=== PATIENT | female | born 1955 | race Caucasian/White ===

== ENCOUNTER → 2017-01-16 | Outpatient (CLI) | payer OTHER | LOC: GMAB 14:23 | PROVIDERS: ATTEND Family Medicine | DX: R94.5 Abnormal results of liver function studies (principal) ==

== ENCOUNTER → 2017-02-18 | Outpatient (CLI) | payer OTHER, SELFPAY ==
--- NOTE | 2017-02-18 17:39 | US ---
EXAM DESCRIPTION: Abdomen,Complete CLINICAL HISTORY: NON-SPECIFIC ABNORMALITY ON LIVER FUNCTION TEST COMPARISON: None Available. TECHNIQUE: Complete abdominal ultrasound FINDINGS: The aorta tapers normally from approximately 2.4 to 1.7 cm with no abnormality in the region of the vena cava. The liver demonstrates increased echogenicity and is enlarged at 19.6 cm without focal mass or cyst. Hepatic steatosis should be considered. No intrahepatic dilation is seen. Gallbladder is surgically absent and the common bile duct is prominent at approximately 9.6 mm. Pancreas is normal in appearance except for a small cyst noted in the region of the pancreatic head with a maximal diameter of approximately 1.3 cm. No associated solid component or evidence of pancreatic duct dilation is seen. Right kidney is 12.4 cm and left kidney 12.7 cm in length. No cyst mass or obstruction is noted. No ascites is evident. The spleen is mildly enlarged at 12.5 cm in length. IMPRESSION: 1. Small 1.3 x 1.2 x 1.0 cm cyst in the head of the pancreas without associated solid component. Further evaluation with either multiphase enhanced CT or enhanced MR examination to fully characterize the pancreas is recommended. This should be performed with contrast enhancement if possible. 2. Hepatomegaly with increased echogenicity consistent with hepatic steatosis with mild splenomegaly. 3. Prior cholecystectomy with mildly prominent common bile duct. Electronically signed by: Aiden Shen MD 02/18/2017 5:38 PM CDT
== END | disposition home or self-care (01) ==
LOC: US 09:16
PROVIDERS: ATTEND Family Medicine
DX: R94.5 Abnormal results of liver function studies (principal)

== ENCOUNTER → 2017-02-28 | Outpatient (CLI) | payer SELFPAY ==
--- NOTE | 2017-02-28 16:24 | CT ---
EXAM DESCRIPTION: CT ABDOMEN AND PELVIS WITHOUT AND WITH CONTRAST CLINICAL HISTORY: CYST OF PANCREAS K86.2 COMPARISON: Ultrasound examination 02/18/2017 TECHNIQUE: CT of the abdomen and pelvis are performed prior to and during IV bolus administration of 100 mL of Isovue 300. Oral contrast media was not utilized. This exam was performed according to our departmental dose-optimization program, which includes automated exposure control, adjustment of the mA and/or kV according to patient size and/or use of iterative reconstruction technique. FINDINGS: The lung bases are clear. Prosthesis overlies the left lower chest wall consistent with previous mastectomy. Noncontrast imaging demonstrates surgical absence of the gallbladder. On noncontrast imaging the pancreas is unremarkable. Aortic calcification without aneurysm is noted. A small fat-containing umbilical hernia is noted. No evidence of renal stone disease or hydronephrosis is noted. Aortic calcification without aneurysm is evident. An eventration of the right lateral abdominal wall with bulging of the liver into the eventration just anterior to the tip of the 11th and 12th rib is noted. A mika hernia is not apparent. Enhanced examination demonstrates a homogeneous appearance of the liver. A small normal spleen is present. The the unenhanced pancreas demonstrates a normal appearance with no evidence of a pancreatic or peripancreatic mass identified. A small normal common bile duct is evident post cholecystectomy. The kidneys enhance normally. No solid pancreatic or splenic or adrenal masses are seen. No cyst or mass or obstruction of the kidneys noted. Continuing into the pelvis small amount of layering contrast in the bladder is noted without focal mass. The uterus is anteverted and slightly to the right of midline with normal adnexal structures large and small bowel is normal in caliber. Mild degenerative changes in the dorsal spine without destructive process is noted. IMPRESSION: 1. The pancreas is essentially normal in appearance without identification of a pancreatic head cyst, particularly on contrast enhanced examination 2. Surgical absence of the gallbladder without ductal dilation. 3. Small fat-containing umbilical hernia and moderate eventration of the right lateral abdominal wall with bulging of the liver into the eventration without mika hernia. Electronically signed by: Aiden Shen MD 02/28/2017 4:23 PM CDT
== END | disposition home or self-care (01) ==
LOC: CT 08:06
PROVIDERS: ATTEND Family Medicine
DX: K86.3 Pseudocyst of pancreas (principal)

== ENCOUNTER → 2019-02-23 | Outpatient (CLI) | payer MEDICARE, OTHER | LOC: LAB.O 08:29 | PROVIDERS: ATTEND Nurse Practitioner Family | DX: Z00.01 Encounter for general adult medical examination with abnormal findings (principal); E11.65 Type 2 diabetes mellitus with hyperglycemia; E66.09 Other obesity due to excess calories; Z68.34 Body mass index [BMI] 34.0-34.9, adult ==

== ENCOUNTER 2019-04-13 21:24 | Emergency (ER) | payer MEDICARE, OTHER ==
--- NOTE | 2019-04-13 22:10 | RAD ---
EXAM DESCRIPTION: XR Foot, Left 3 Views CLINICAL HISTORY: 64 years Female twisted foot , mid to lateral pain TECHNIQUE: Three views of the left foot COMPARISON: No prior exams provided for comparison. FINDINGS: There is no acute left foot fracture, dislocation, or evidence of avascular necrosis. Mild hallux valgus with mild primary osteoarthritic changes at the first metatarsophalangeal joint. Small medial soft tissue bunion. Joint spaces otherwise preserved. No aggressive osseous lesion. Large plantar calcaneal enthesophyte. IMPRESSION: No acute findings in the left foot. Electronically signed by: Joelle aMyes MD 04/13/2019 10:09 PM CDT
--- NOTE | 2019-04-13 22:48 | ED.PDOC ---
History of Present Illness - General Chief Complaint: Lower Extremity Injury Stated Complaint: left ankle injury Time Seen by Provider: 04/13/19 21:43 Source: patient Exam Limitations: no limitations - History of Present Illness Initial Comments: the patient is a 64-year-old female presenting to the emergency room secondary to left foot pain after she twisted her foot stepping off of a step at 2 PM today. She has had difficulty walking on it since. Pain is in the mid to lateral aspect of the foot. It is not distal. She is neurovascularly intact. No obvious deformity. No crepitus. No bruising. No laceration. No pain proximal. No actual pain in the ankle itself. Timing/Duration: 4-6 hours Severity: moderate Improving Factors: immobilization Worsening Factors: movement Associated Symptoms: denies symptoms Allergies/Adverse Reactions: Allergies NO KNOWN ALLERGY Allergy (Verified 07/03/12 13:49) Home Medications: Ambulatory Orders Ciprofloxacin [Cipro] 500 mg PO BID #10 tab 02/26/15 Saxagliptin-Metformin HCl [Kombiglyze Xr] 1 tab PO 02/26/15 Review of Systems - Review of Systems Constitutional: States: no symptoms reported EENTM: States: no symptoms reported Respiratory: States: no symptoms reported Cardiology: States: no symptoms reported Gastrointestinal/Abdominal: States: no symptoms reported Genitourinary: States: no symptoms reported Musculoskeletal: States: see HPI Skin: States: no symptoms reported Neurological: States: no symptoms reported Endocrine: States: no symptoms reported All other Systems: No Change from Baseline Past Medical History (General) - Patient Medical History Hx Seizures: No Hx Stroke: No Hx Dementia: No Hx Asthma: No Hx of COPD: No Hx Cardiac Disorders: No Hx Congestive Heart Failure: No Hx Pacemaker: No Hx Hypertension: Yes Hx Thyroid Disease: No Hx Diabetes: Yes - NIDDM Hx Gastroesophageal Reflux: No Hx Renal Disease: No Hx Cancer: Yes - breast ca 2003 Hx of HIV: No Hx Hepatitis C: No Hx MRSA: No Surgical History: cholecystectomy, other - Vaccination History Hx Tetanus, Diphtheria Vaccination: Yes Hx Influenza Vaccination: No Hx Pneumococcal Vaccination: Yes Immunizations Up to Date: Yes - Social History Hx Tobacco Use: No Hx Chewing Tobacco Use: No Hx Alcohol Use: No Hx Substance Use: No Hx Substance Use Treatment: No Hx Depression: No Feels Threatened In Home Enviroment: No Feels Threatened In a Relationship: No Hx Physical Abuse: No Hx Emotional Abuse: No Hx Suspected Abuse: No - Activities of Daily Living Hospice Agency (if applicable):: None - Female History Patient is a Female of Child Bearing Age (10 -59 yrs old): No Family Medical History - Family History Mother Family History: Unknown Physical Exam - Physical Exam General Appearance: Alert, Comfortable, No apparent distress Eye Exam: bilateral normal Ears, Nose, Throat: hearing grossly normal Respiratory: no respiratory distress, no accessory muscle use Cardiovascular/Chest: normal peripheral pulses, no edema Peripheral Pulses: dorsalis pedis,right: 2+, dorsalis pedis,left: 2+, posterior tibialis,right: 2+, posterior tibialis,left: 2+ Rectal Exam: deferred - this is confined renal, heme positive stool - Tom. Extremity: normal range of motion, no pedal edema, no calf tenderness, normal capillary refill, other - see history of present illness Neurologic: stars coordinator II-XII nml as tested, no motor/sensory deficits, alert, normal mood/affect Skin Exam: normal color Comments: Vital Signs - 8 hr 04/13/19 21:25 Temperature 97.8 F Pulse Rate [ 66 pulse ox] Respiratory 18 Rate Blood Pressure 155/85 [Right Arm] O2 Sat by Pulse 95 Oximetry Progress - Progress Progress: 04/13/19 22:50 the patient is a 64-year-old female with a left midfoot sprain. X-ray fails to show any dislocation or fracture. She is neurovascularly at her baseline. She is going to be placed in a walking boot. I would recommend that she use this for at least 1-2 weeks. Motrin can be used for discomfort. ER warnings were given for any significant worsening. cezar hayden [id number] Departure - Departure Clinical Impression: Sprain of foot Qualifiers: Encounter type: initial encounter Laterality: left Qualified Code(s): S93.602A - Unspecified sprain of left foot, initial encounter Disposition: Discharge to Home or Self Care Condition: Fair Departure Forms: ED Discharge - Pt. Copy, Patient Portal Self Enrollment Instructions: Foot Sprain (DC) Diet: diabetic diet Activity: increase activity as tolerated - with walking boot Referrals: Gloria Garcia NP [Primary Care Provider] - 1-2 Weeks Home Medications: Ambulatory Orders Ciprofloxacin [Cipro] 500 mg PO BID #10 tab 02/26/15 Saxagliptin-Metformin HCl [Kombiglyze Xr] 1 tab PO 02/26/15 Additional Instructions: the patient is a 64-year-old female with a left midfoot sprain. X-ray fails to show any dislocation or fracture. She is neurovascularly at her baseline. She is going to be placed in a walking boot. I would recommend that she use this for at least 1-2 weeks. Motrin can be used for discomfort. ER warnings were given for any significant worsening.
[2019-04-13 23:17] VITALS: BP 132/75; TEMP 98.2; O2SAT 98
== END 2019-04-13 23:05 | disposition home or self-care (01) ==
LOC: ER 21:24
DX: S93.602A Unspecified sprain of left foot, initial encounter (principal); I10 Essential (primary) hypertension; E11.9 Type 2 diabetes mellitus without complications; Z85.3 Personal history of malignant neoplasm of breast; X50.9XXA Other and unspecified overexertion or strenuous movements or postures, initial encounter; Y92.009 Unspecified place in unspecified non-institutional (private) residence as the place of occurrence of the external cause

== ENCOUNTER 2019-07-01 21:21 | Emergency (ER) | payer MEDICARE, OTHER ==
--- NOTE | 2019-07-01 21:58 | ED.PDOC ---
History of Present Illness - General Stated Complaint: NAUSEA, VOMITING, LIGHTHEADED Time Seen by Provider: 07/01/19 21:24 Information Source: patient, RN notes reviewed, Vital Signs reviewed - History of Present Illness Initial Comments: Patient presents for evaluation of lightheadedness and near syncope after leaning forward followed by nausea and vomiting. She stated that she threw up so much that she felt like she was going to pass out. She denies any fevers, chills, chest pain, SOB, abdominal pain, constipation or diarrhea. She has been feeling well over the past few days. She denies any headaches, vision changes, weakness, or numbness. She denies previous hx of CAD or atrial fibrillation. Denies recent travel, recent surgeries, hx of blood clots, estrogen use, smoking. Review of Systems - Review of Systems Constitutional: Denies: chills, fever EENTM: Denies: blurred vision Cardiology: States: palpitations Gastrointestinal/Abdominal: States: nausea, vomiting Genitourinary: Denies: dysuria Musculoskeletal: Denies: neck pain Neurological: Denies: headache, numbness Past Medical History (General) - Patient Medical History Hx Seizures: No Hx Stroke: No Hx Dementia: No Hx Asthma: No Hx of COPD: No Hx Cardiac Disorders: No Hx Congestive Heart Failure: No Hx Pacemaker: No Hx Hypertension: Yes Hx Thyroid Disease: No Hx Diabetes: Yes - NIDDM Hx Gastroesophageal Reflux: No Hx Renal Disease: No Hx Cancer: Yes - breast ca 2002 Hx of HIV: No Hx Hepatitis C: No Hx MRSA: No - Vaccination History Hx Tetanus, Diphtheria Vaccination: Yes Hx Influenza Vaccination: No Hx Pneumococcal Vaccination: Yes - Social History Hx Tobacco Use: No Hx Chewing Tobacco Use: No Hx Alcohol Use: No Hx Substance Use: No Hx Substance Use Treatment: No Hx Depression: No Hx Physical Abuse: No Hx Emotional Abuse: No Hx Suspected Abuse: No Family Medical History - Family History Mother Family History: Unknown Physical Exam - Physical Exam General Appearance: Alert, Comfortable, No apparent distress, Well Developed, Well Groomed, Well Hydrated, Well Nourished Eyes, Ears, Nose, Throat Exam: PERRL/EOMI Neck: non-tender, full range of motion, supple Respiratory: lungs clear, normal breath sounds, no respiratory distress, no accessory muscle use Cardiovascular/Chest: tachycardia, irregularly irregular Peripheral Pulses: 2+ Gastrointestinal/Abdominal: non tender, soft, no organomegaly Rectal Exam: deferred Extremity: no pedal edema, no calf tenderness Neurologic: medical front desk specialist II-XII nml as tested, no motor/sensory deficits, alert, normal mood/affect, oriented x 3 Skin Exam: warm/dry Progress - Progress Progress: Patient presents for evaluation of near syncope. She had no focal neurologic deficits on examination. She has no risk factors for PE. EKG was not significant for ischemic changes. There was atrial fibrillation with RVR without ischemia. She has no previous hx of atrial fibrillation. CBC was not significant for anemia. There was signs of dehydration on CMP with hyperglycemia. There was no signs of DKA. Atrial fibrillation was new onset. CHADVASC score of 2, giving 4% chance of embolic stroke/year. Discussed anti-coagulation with patient however she declined. Atrial fibrillation is likely culprit of symptoms earlier today. Patient given 25mg Toprol XL with rate control. Patient states that she would prefer to follow-up with her family physician to discuss anti-coagulation and long term care social worker management. Offered admission for further work-up and management, however the patient declined. She will call her family physician in the morning. - Results/Orders Results/Orders: 07/01/19 22:15 EKG STAT Laboratory Results WBC 9.0 K/mm3 (4.8-10.8) 07/01/19 22:17 RBC 4.85 M/mm3 (4.20-5.40) 07/01/19 22:17 Hgb 14.1 gm/dL (12.0-16.0) 07/01/19 22:17 Hct 43.0 % (36.0-47.0) 07/01/19 22:17 MCV 88.6 fl (81.0-99.0) 07/01/19 22:17 MCH 29.1 pg (27.0-31.0) 07/01/19 22:17 MCHC 32.8 g/dL (33.0-37.0) L 07/01/19 22:17 RDW 13.2 % (11.5-14.5) 07/01/19 22:17 Plt Count 252 K/mm3 (130-400) 07/01/19 22:17 MPV 7.5 fl (7.40-10.4) 07/01/19 22:17 Absolute Neuts (auto) 6.60 K/uL (1.8-6.8) 07/01/19 22:17 Absolute Lymphs (auto) 1.90 K/uL (1.0-3.4) 07/01/19 22:17 Absolute Monos (auto) 0.40 K/uL (0.2-0.8) 07/01/19 22:17 Absolute Eos (auto) 0.00 K/uL (0.0-0.4) 07/01/19 22:17 Absolute Basos (auto) 0.10 K/uL (0.0-0.1) 07/01/19 22:17 Neutrophils % 73.6 % (42.0-78.0) 07/01/19 22:17 Lymphocytes % 21.0 % (20.0-50.0) 07/01/19 22:17 Monocytes % 4.4 % (2.0-9.0) 07/01/19 22:17 Eosinophils % 0.4 % (1.0-5.0) L 07/01/19 22:17 Basophils % 0.6 % (0.0-2.0) 07/01/19 22:17 Sodium 134 mmol/L (135-145) L 07/01/19 22:17 Potassium 4.5 mmol/L (3.6-5.0) 07/01/19 22:17 Chloride 100 mmol/L (101-111) L 07/01/19 22:17 Carbon Dioxide 19 mmol/L (21-31) L 07/01/19 22:17 Anion Gap 19.5 (12-18) H 07/01/19 22:17 BUN 16 mg/dL (7-18) 07/01/19 22:17 Creatinine 0.81 mg/dL (0.6-1.3) 07/01/19 22:17 BUN/Creatinine Ratio 19.8 (10-20) 07/01/19 22:17 POC Glucose 230 mg/dL (70-105) H 07/02/19 01:05 Random Glucose 396 mg/dL (70-105) H 07/01/19 22:17 Serum Osmolality 286.0 mOsm/L (275-295) 07/01/19 22:17 Calcium 9.6 mg/dL (8.4-10.2) 07/01/19 22:17 Total Bilirubin 0.6 mg/dL (0.2-1.0) 07/01/19 22:17 AST 48 IU/L (10-42) H 07/01/19 22:17 ALT 51 IU/L (10-60) 07/01/19 22:17 Alkaline Phosphatase 52 IU/L (42-121) 07/01/19 22:17 Serum Total Protein 7.8 gm/dL (6.4-8.2) 07/01/19 22:17 Albumin 4.1 g/dl (3.2-5.5) 07/01/19 22:17 Globulin 3.7 gm/dL (2.3-3.5) H 07/01/19 22:17 Albumin/Globulin Ratio 1.1 (1.1-1.9) 07/01/19 22:17 Urine Color Yellow (Yellow) 07/02/19 00:00 Urine Appearance Sl cloudy (Clear) 07/02/19 00:00 Urine pH 5.0 (4.5-7.8) 07/02/19 00:00 Ur Specific [place] 1.015 (1.005-1.030) 07/02/19 00:00 Urine Protein 30 mg/dL 07/02/19 00:00 Urine Glucose (UA) >=1000 mg/dL (Negative) H 07/02/19 00:00 Urine Ketones 15 mg/dL (NEGATIVE) H 07/02/19 00:00 Urine Blood Trace-lysed (Negative) H 07/02/19 00:00 Urine Nitrite Negative 07/02/19 00:00 Urine Bilirubin Negative (NEGATIVE) 07/02/19 00:00 Urine Urobilinogen 0.2 mg/dL (0.2-1.0) 07/02/19 00:00 Ur Leukocyte Esterase Negative (Negative) 07/02/19 00:00 Urine RBC 0 /hpf 07/02/19 00:00 Urine WBC 0-1 /hpf 07/02/19 00:00 Ur Epithelial Cells 0-1 /hpf 07/02/19 00:00 Urine Bacteria 0 07/02/19 00:00 Urine Mucus Trace 07/02/19 00:00 - EKG/XRAY/CT EKG: Atrial, Fibrillation, RVR, no ST T wave changes Departure - Departure Clinical Impression: Hyperglycemia, Dehydration Atrial fibrillation Qualifiers: Atrial fibrillation type: unspecified Qualified Code(s): I48.91 - Unspecified atrial fibrillation Time of Disposition: :01 Disposition: Discharge to Home or Self Care Condition: Good Departure Forms: ED Discharge - Pt. Copy, Patient Portal Self Enrollment Instructions: Atrial Fibrillation, Hyperglycemia, Adult, Dehydration, Adult (DC) Referrals: Jesusita Mauro FNP [Primary Care Provider] - 1-2 Weeks Prescriptions: Metoprolol Succinate [Toprol XL] 25 mg PO DAILY #30 tab.er.24 Home Medications: Ambulatory Orders Ciprofloxacin [Cipro] 500 mg PO BID #10 tab 02/26/15 Saxagliptin-Metformin HCl [Kombiglyze Xr] 1 tab PO 02/26/15 Metoprolol Succinate [Toprol XL] 25 mg PO DAILY #30 tab.er.24 07/02/19 Comments: Eduardo Valdez #[id number]
[2019-07-01 22:00] VITALS: TEMP 98.6
[2019-07-01] MEDS: SODIUM CHLORIDE 0.9% 1000ML 1,000 ML IVS ONE (22:27)
[2019-07-01] MEDS: METOPROLOL SUCCINATE XL 25 MG TAB PO ONE (23:23)
[2019-07-02 00:21] VITALS: O2SAT 96
[2019-07-02 01:13] VITALS: BP 124/88
== END 2019-07-02 01:13 | disposition home or self-care (01) ==
LOC: ER 21:21
DX: I48.91 Unspecified atrial fibrillation (principal); E86.0 Dehydration; E11.65 Type 2 diabetes mellitus with hyperglycemia; R00.0 Tachycardia, unspecified; R55 Syncope and collapse; R11.2 Nausea with vomiting, unspecified; I10 Essential (primary) hypertension; Z85.3 Personal history of malignant neoplasm of breast
CPT/HCPCS: 80053; 81001; 82948; 85025; 93005; J7030

== ENCOUNTER → 2019-08-03 | Outpatient (CLI) | payer MEDICARE, OTHER | LOC: LAB.O 16:47 | PROVIDERS: ATTEND Nurse Practitioner | DX: E11.65 Type 2 diabetes mellitus with hyperglycemia (principal) ==

== ENCOUNTER → 2020-08-29 | Outpatient (CLI) | payer MEDICARE, OTHER ==
--- NOTE | 2020-08-29 12:01 | RAD ---
EXAM DESCRIPTION: Foot,Left 3 Views CLINICAL HISTORY: 65 years, Female, FOOT PAIN COMPARISON: Previous x-ray images left foot April 13, 2019 TECHNIQUE: AP, lateral, and oblique views of the left foot FINDINGS: Mild degenerative changes at the first metatarsal phalangeal joint with mild osseous bunion deformity. Mild degenerative narrowing of the joints of the toes. Spurring is seen along the medial aspect of the navicular. Oblique views show intact bones of the toes and metatarsals. No midfoot malalignment. Lateral view shows no evidence of fracture of the talus or calcaneus. Prominent plantar calcaneal spur appears well corticated and measures 1.3 cm. There is no other bone, joint, or soft tissue abnormality observed. There is no radiopaque foreign body. IMPRESSION: Degenerative changes as described. Electronically signed by: Aldo Peterson MD 08/29/2020 12:00 PM [facility]
== END ==
LOC: YCFC.O 11:06
PROVIDERS: ATTEND Family Medicine
DX: S90.32XA Contusion of left foot, initial encounter (principal); M19.072 Primary osteoarthritis, left ankle and foot